=== PATIENT | male | born 1945 | race Caucasian/White ===

== ENCOUNTER 2022-03-08 19:02 | Emergency (ER) | payer MEDICARE, BC ==
[2022-03-08 20:38] LABS: HEMOGLOBIN 11.9 gm/dl (14.0-17.5); RED BLOOD COUNT 4.95 M/UL (4.20-5.50); WHITE BLOOD COUNT 9.6 K/UL (4.5-11.0)
== END 2022-03-09 04:45 | disposition short-term general hospital (02) ==
LOC: ER1 19:02
PROVIDERS: Family Medicine
DX: K56.7 Ileus, unspecified (principal); Z20.822 Contact with and (suspected) exposure to COVID-19
CPT/HCPCS: 80053; 83690; 85025; 85610; 93005; 96361; 96374; 96375; 99285; J2550; J2765; J3480; Q9967; U0002